=== PATIENT | female | born 1990 | race Caucasian/White ===

== ENCOUNTER 2017-05-24 03:51 | Emergency (ER) | payer MEDICAID ==
[2017-05-24 05:21] VITALS: BP 128/78
== END 2017-05-24 05:15 | disposition home or self-care (01) ==
LOC: EDSEX 03:51 → ED 03:51
DX: S61.411A Laceration without foreign body of right hand, initial encounter (principal); W01.0XXA Fall on same level from slipping, tripping and stumbling without subsequent striking against object, initial encounter; Y93.89 Activity, other specified; Y99.8 Other external cause status; Y92.89 Other specified places as the place of occurrence of the external cause
CPT/HCPCS: J2001

== ENCOUNTER 2017-05-27 17:00 | Emergency (ER) | payer MEDICAID ==
[2017-05-27 17:31] VITALS: BP 139/71
== END 2017-05-27 18:45 | disposition home or self-care (01) ==
LOC: EDSEX 17:00 → ED 17:00
DX: S61.411D Laceration without foreign body of right hand, subsequent encounter (principal); X58.XXXD Exposure to other specified factors, subsequent encounter; Y92.89 Other specified places as the place of occurrence of the external cause; Y99.8 Other external cause status

== ENCOUNTER 2018-09-30 12:54 | Emergency (ER) | payer BC ==
[~2018-09-30] VITALS: Ht 167.6 cm; Wt 118.4 kg
[2018-09-30 13:03] VITALS: BP 138/84; Ht 167.6 cm; Wt 118.4 kg
== END 2018-09-30 14:59 | disposition left against medical advice (07) ==
LOC: ED 12:54
DX: Z53.21 Procedure and treatment not carried out due to patient leaving prior to being seen by health care provider (principal)